=== PATIENT | male | born 1990 | race Two or more races ===

== ENCOUNTER 2022-02-03 16:01 | Outpatient (REF) | payer MEDICAID, SELFPAY ==
[2022-02-03 16:17] LABS: MANUAL DIFF FLAG NO
[2022-02-03 16:40] LABS: Basophils Absolute Auto 0.1 X10*3/uL (0.0-0.2); Basophils Percent Auto 0.7 % (0-2); Eosinophils Absolute Auto 0.5 X10*3/uL (0.0-0.4); Eosinophils Percent Auto 5.1 % (0-4); Hematocrit 39.7 % (42.0-52.0); Hemoglobin 13.2 g/dl (14.0-18.0); Imm Gran Abs Auto 0.03 X10*3/uL (0.00-0.03); Imm Gran Pct Auto 0.3 % (0.0-0.4); Lymphocytes Absolute Auto 3.1 X10*3/uL (1.2-4.9); Lymphocytes Percent Auto 34.4 % (20-40); Mean Corpuscular HGB Conc 33.2 g/dl (31.0-36.0); Mean Corpuscular Hemoglobin 29.5 pg (27.0-33.0); Mean Corpuscular Volume 88.8 fL (80.0-98.0); Mean Platelet Volume 11.1 fL (9.4-12.4); Monocytes Absolute Auto 0.5 X10*3/uL (0.1-1.2); Neutrophils Absolute Auto 4.8 x10*3/uL (2.0-8.3); Neutrophils Percent Auto 53.5 % (45-73); Platelet Count 302 X10*3/uL (160-400); Red Blood Count 4.47 X10*6/uL (4.60-5.80); Red Cell Distribution Width 12.6 % (11.0-16.0)
[2022-02-03 17:06] LABS: Anion Gap 12 (12-20); Blood Urea Nitrogen 23 mg/dL (9-16); Calcium 10.1 mg/dL (8.4-10.2); Carbon Dioxide 29 mmol/L (22-29); Chloride 106 mmol/L (96-108); Cholesterol 210 mg/dL; Estimated Glomerular Filt Rate > 60; Glucose Random 81 mg/dL (60-115); Potassium 4.3 mmol/L (3.3-5.1); Sodium 143 mmol/L (135-145)
== END 2022-02-03 16:02 | disposition home or self-care (01) ==
LOC: HO.LAB 16:01
PROVIDERS: PCP Internal Medicine; Visit Provider Internal Medicine
DX: Z00.00 Encounter for general adult medical examination without abnormal findings (principal)
CPT/HCPCS: 36415; 80048; 82465; 85025

== ENCOUNTER 2023-06-19 11:08 | Outpatient (REF) | payer SELFPAY ==
[2023-06-19 11:28] LABS: MANUAL DIFF FLAG NO
[2023-06-19 12:21] LABS: Basophils Absolute Auto 0.1 X10*3/uL (0.0-0.2); Basophils Percent Auto 1.2 % (0-2); Eosinophils Absolute Auto 0.4 X10*3/uL (0.0-0.4); Eosinophils Percent Auto 6.4 % (0-4); Hematocrit 38.9 % (42.0-52.0); Hemoglobin 12.8 g/dl (14.0-18.0); Imm Gran Abs Auto 0.02 X10*3/uL (0.00-0.03); Imm Gran Pct Auto 0.3 % (0.0-0.4); Lymphocytes Absolute Auto 2.8 X10*3/uL (1.2-4.9); Lymphocytes Percent Auto 41.6 % (20-40); Mean Corpuscular HGB Conc 32.9 g/dl (31.0-36.0); Mean Corpuscular Volume 88.2 fL (80.0-98.0); Mean Platelet Volume 11.5 fL (9.4-12.4); Monocytes Absolute Auto 0.4 X10*3/uL (0.1-1.2); Monocytes Percent Auto 6.6 % (2-11); Neutrophils Percent Auto 43.9 % (45-73); Platelet Count 259 X10*3/uL (160-400); Red Blood Count 4.41 X10*6/uL (4.60-5.80); Red Cell Distribution Width 13.2 % (11.0-16.0); White Blood Count 6.7 X10*3/uL (4.8-10.8)
[2023-06-19 12:57] LABS: Alanine Aminotransferase 11 U/L (0-40); Albumin Level 4.6 g/dL (3.5-5.0); Alkaline Phosphatase 57 U/L (39-117); Anion Gap 10 (12-20); Aspartate Amino Transferase 13 U/L (5-37); Bilirubin Total 0.7 mg/dL (0.0-1.0); Blood Urea Nitrogen 18 mg/dL (9-16); Calcium 9.4 mg/dL (8.4-10.2); Carbon Dioxide 25 mmol/L (22-29); Chloride 108 mmol/L (96-108); Cholesterol 186 mg/dL (<200); Estimated Glomerular Filt Rate > 60; Glucose Fasting 84 mg/dL (60-99); HDL Cholesterol 46 mg/dL (>40); Iron 68 mcg/dL (45-160); LDL Cholesterol Calculated 131 mg/dL (<100); Percent Iron Saturation 23 % (15-50); Potassium 4.1 mmol/L (3.3-5.1); Sodium 139 mmol/L (135-145); Total Iron Binding Capacity 298 mcg/dL (228-428); Triglycerides 45 mg/dL (<150); Unsaturated Iron Binding 230 ug/dL
[2023-06-19 13:20] LABS: Vitamin B12 364 pg/mL (200-900)
== END 2023-06-19 11:09 | disposition home or self-care (01) ==
LOC: HO.LAB 11:08
PROVIDERS: PCP Internal Medicine; Visit Provider Internal Medicine
DX: D64.9 Anemia, unspecified (principal); E78.00 Pure hypercholesterolemia, unspecified
CPT/HCPCS: 36415; 80053; 80061; 82607; 83540; 85025

== ENCOUNTER 2024-01-20 15:43 | Outpatient (REF) | payer OTHER, SELFPAY ==
[2024-01-20 15:57] LABS: MANUAL DIFF FLAG NO
[2024-01-20 17:07] LABS: Basophils Absolute Auto 0.1 X10*3/uL (0.0-0.2); Basophils Percent Auto 0.6 % (0-2); Eosinophils Absolute Auto 0.2 X10*3/uL (0.0-0.4); Eosinophils Percent Auto 1.8 % (0-4); Hematocrit 37.3 % (42.0-52.0); Imm Gran Abs Auto 0.03 X10*3/uL (0.00-0.03); Imm Gran Pct Auto 0.3 % (0.0-0.4); Lymphocytes Absolute Auto 3.3 X10*3/uL (1.2-4.9); Lymphocytes Percent Auto 35.4 % (20-40); Mean Corpuscular HGB Conc 34.9 g/dl (31.0-36.0); Mean Corpuscular Hemoglobin 30.1 pg (27.0-33.0); Mean Corpuscular Volume 86.3 fL (80.0-98.0); Mean Platelet Volume 11.1 fL (9.4-12.4); Monocytes Absolute Auto 0.5 X10*3/uL (0.1-1.2); Monocytes Percent Auto 5.2 % (2-11); Neutrophils Absolute Auto 5.3 x10*3/uL (2.0-8.3); Neutrophils Percent Auto 56.7 % (45-73); Platelet Count 253 X10*3/uL (160-400); Red Blood Count 4.32 X10*6/uL (4.60-5.80); Red Cell Distribution Width 12.6 % (11.0-16.0); White Blood Count 9.4 X10*3/uL (4.8-10.8)
[2024-01-20 17:46] LABS: Iron 72 mcg/dL (45-160); Percent Iron Saturation 24 % (15-50); Total Iron Binding Capacity 298 mcg/dL (228-428); Unsaturated Iron Binding 226 ug/dL
[2024-01-20 17:53] LABS: Ferritin 48 ng/mL (20-250)
[2024-01-20 18:06] LABS: Folate 10.1 ng/mL (> or = 4.0); Vitamin B12 363 pg/mL (200-900)
== END 2024-01-20 15:44 | disposition home or self-care (01) ==
LOC: HO.LAB 15:43
PROVIDERS: PCP Internal Medicine; Visit Provider Internal Medicine
DX: D64.9 Anemia, unspecified (principal)
CPT/HCPCS: 36415; 82607; 82728; 82746; 83540; 85025

== ENCOUNTER 2025-03-23 11:30 | Outpatient (AMB) | payer OTHER, SELFPAY ==
--- OUTSIDE RECORDS SUMMARY | 2023-10-21 08:00 | XMS_ITS ---
Author Organization [facility] Address [address] [place] [phone] Care Team Providers Care Municipal Clerk Name Role Phone Arturo (RETIRED) Tacos LOBATO Primary Care Provide Ki Devine [phone] REASON FOR VISIT ANEMIC Encounters Encounter Location Date Provider Diagnosis [facility] [address] [place] [phone] 10/21/2023 Ki Terry Plan Of Treatment No Information Progress Notes * CHEMO SOARESDOB:1990 (34 yo M)Acc No.[id number]:10/21/2023 Progress Notes Patient: CHEMO OREILLY Provider: Robert Terry MD :1990 A ge:32 Y S ex:Male Date:10/21/2023 Address:[address] [place], [place] [id number] Pcp:Tacos Morris (RETIRED )MD Subjective: * Chief Complaints: * A NEMIC * The named appointment provid er may or may not be the originator of this progress note, and it is not deemed complete until electronically signed by the appointment provider. Sign off status: Pending * Provider: Robert Terry MD Date: 0 10/21/2023 Generated for Mika deshpande/Jerry/Lakhwinderitting on: 05/24/2024 03:09 PM EST
--- NOTE | 2025-03-23 11:35 | MHC.PC.OV ---
Vital Signs 03/23/25 11:48 Height 5 ft 9 in Weight 160 lb BMI 23.6 BP 126/76 Blood Pressure Location Lt radial Position Sitting Pulse 76 Pulse Source Pulse Oximeter Temp 97.7 F Temp Source Oral Intake Visit Reasons: RONY Croke/ Re-Establish Care Synthetic Staple Extruder Required: No Allergies No Known Allergies Allergy (Verified 03/23/25 11:37) Medication List - Last Reconciled 03/23/25 by Veto Porras MD No Known Home Meds Tobacco use date assessed: 03/23/25 Dental Screening Dental Screen Date: 03/23/25 Did you have a dental visit in the last 12 months?: No Was dental information given to patient?: Patient has dentist HPI HPI Comments History of Present Illness Details History of Present Illness The patient is a 34 year old male presenting for an annual physical examination. He considers himself to be generally healthy and denies any significant medical conditions. He is not taking any medications. The patient's only surgical history is an appendectomy approximately 12 years ago. His last blood work was performed in January of the previous year and was reportedly normal. Regarding his mental health, he reports occasional stress related to betting but denies depression, anxiety, or suicidal thoughts on screening. He does endorse feeling tired with little energy and having a poor appetite or overeating on several days. The patient has declined both the COVID-19 and influenza vaccinations. His last dental visit was over five years ago. Medical History: - Reports feeling tired with low energy on several days. - Reports poor appetite or overeating on several days. - Reports stress related to betting. Surgical History: - Appendectomy approximately 12 years ago. Medications: - The patient reports taking no medications. Family History: - Denies family history of heart disease, diabetes, or cancer. Diagnostic Results: - Labs: Blood work from January of the previous year was reviewed and noted to be normal. Social History - Employment: Works as a supervisor shop for retailers. - Housing: Reports having a stable place to live. - Substance Use: Denies use of tobacco, vaping products, alcohol, heroin, or cocaine. - Substance Use: Reports smoking marijuana, about two blunts per day. - Service: Denies ever serving in the . - Dental Care: Has not seen a dentist in over five years. [facility] Medical History (Updated 03/23/25 @ 11:50 by Veto Porras MD) Annual physical exam Social History Housing: Apartment Patient Tobacco Use Status: Never used Tobacco e-Cigarette/Vaping Use: Never Used Second Hand Smoke Exposure: No service: No Current occupational status: employed Current occupational exposures/hazards: No Cognitive needs: No Hearing needs: No Vision needs: No Questionnaire PHQ-9 Over the last 2 weeks, how often have you been bothered by any of the following problems? 1. Little interest or pleasure in doing things: not at all 2. Feeling down, depressed, or hopeless: not at all 3. Trouble falling or staying asleep, or sleeping too much: not at all 4. Feeling tired or having little energy: several days 5. Poor appetite or overeating: several days 6. Feeling bad about yourself - or that you are a failure or have let yourself or your family down: not at all 7. Trouble concentrating on things, such as reading the newspaper or watching television: not at all 8. Moving or speaking so slowly that other people could have noticed. Or the opposite - being so fidgety or restless that you have been moving around a lot more than usual: not at all 9. Thoughts that you would be better off or of hurting yourself in some way: not at all Total score: 2 Depression Screening Interpretation: Negative Depression Screening Done: Yes 28670 - PHQ-9 Billing: Yes Source: Developed by Drs. Ki Aleman, Clara Tan, Christian Connell and colleagues, with an educational fernando from [employer]. Thrive Questionnaire Date Thrive assessed: 03/23/25 I am a: Patient What is your living situation today?: I have a steady place to live Within the past 12 months, did the food you bought not last and you didn't have the money to get more?: Never true Within the past 12 months, did you worry whether your food would run out before you got money to buy more?: Never true Do you have trouble paying for medicines?: No Do you have trouble getting transportation to medical appointments?: No Do you have trouble paying your heating and electricity bill?: No Do you have trouble taking care of your child, family member or friend?: No Do you have trouble with day-to-day activities such as bathing, preparing meals, shopping, managing finances, etc.?: No Are you currently unemployed and looking for a job?: No Are you interested in more education?: No THRIVE Score: 0 AUDIT C Alcohol Use Questionnaire (AUDIT-C) 1. How often do you have a drink containing alcohol?: Never 3. How often do you have six or more drinks on one occasion?: Never Total Score: 0 Score Reviewed/Action Taken: Yes ALBERT-7 AMB Questionnaire ALBERT-7 Date ALBERT - 7 assessed: 03/23/25 Feeling nervous, anxious, or on edge: 0 = Not at all Not being able to stop or control worryin = Not at all Worrying too much about different things: 0 = Not at all Trouble relaxin = Not at all Being so restless that it is hard to sit still: 0 = Not at all Becoming easily annoyed or irritable: 0 = Not at all Feeling afraid as if something awful might happen: 0 = Not at all Total ALBERT-7 score (0-4 normal; 5-9 mild; 10-14 moderate; 15-21 severe): 0 Source: Developed by Drs. Ki Aleman, Clara Tan, Christian Connell and colleagues, with an educational fernando from [employer]. ALBERT-7 Assessment Billing ALBERT-7 Assessment Tool: ALBERT-7 Assessment 41532 Review of Systems Narrative Review of Systems - Constitutional: Reports feeling tired with little energy on several days. - Psychiatric: Reports occasional stress. - Psychiatric: Denies anhedonia, depressed mood, trouble concentrating, slowed movement, suicidal ideation, nervousness, uncontrollable worry, trouble relaxing, restlessness, and irritability. - Endocrine: Reports poor appetite or overeating on several days. - Sleep: Denies difficulty sleeping or sleeping too much. All systems reviewed & are unremarkable except as reviewed in HPI and above Physical exam (Primary Care) Tobacco/Smoking Status: Tobacco use Status Patient Tobacco Use Status Never used Tobacco 03/23/25 11:37 e-Cigarette/Vaping Use Never Used 03/23/25 11:37 PHQ-9: PHQ-9 Score PHQ-9: Total score 2 03/23/25 11:39 Depression Screening Interpretation: Negative Thrive Assessment: Date of Thrive Assessment Date Thrive assessed 03/23/25 03/23/25 11:37 Narrative Physical Exam General: +Alert and oriented, Well nourished, No acute distress. Eye: Pupils are equal, round and reactive to light, Intact accommodation, Extraocular movements are intact, Normal conjunctiva, Vision unchanged. HENT: Normocephalic, Atraumatic, Tympanic membranes are clear, Normal hearing, Oral mucosa is moist, No pharyngeal erythema, Ear canals patent. Respiratory: Lungs CTA bilaterally, No wheeze, Respirations are non-labored. Cardiovascular: Regular rate, Regular rhythm, S1 auscultated, S2 auscultated, No murmur, Good pulses equal in all extremities, Normal peripheral perfusion, No edema. Gastrointestinal: Soft, Non-tender, Non-distended, Normal bowel sounds, No organomegaly. Musculoskeletal: Normal range of motion, Normal strength, No tenderness, No swelling, No deformity, Normal gait. Integumentary: Warm, Dry, [place], Intact. Neurologic: Alert, Oriented, Normal sensory, Normal motor function, No focal defects, Cranial Nerves II-XII are grossly intact, Normal deep tendon reflexes. Psychiatric: Cooperative, Appropriate mood & affect, Normal judgment, Reports stress related to gambling, No depression, No anxiety. Coding Level of Care Code New Pt Prev Care 18-39yr(60258 Diagnoses Annual physical exam Z00.00 Additional Codes ALBERT-7 Assessment Billing - ALBERT-7 Assessment Tool: ALBERT-7 Assessment 03829 ([id number]) PHQ-9 - 81567 - PHQ-9 Billing: Yes ([id number]) Assessment & Plan Assessment & Plan (1) Annual physical exam: Comment: - The patient is a 34-year-old male presenting for a routine/new patient/physical - He reports feeling generally healthy. - Plan includes ordering annual screening labs including a complete blood count, electrolytes, glucose, thyroid function, vitamin D, and screening for hepatitis, HIV, and syphilis. - Past labs from last year were noted to be unremarkable. - The patient was counseled on preventative care. - He was advised to see a dentist, as his last visit was over five years ago. - The patient declined recommended influenza and COVID-19 vaccinations. Code(s): Z00.00 - Encounter for general adult medical examination without abnormal findings Category: Medical Plan: Health Maintenance: - Screening Labs: Ordered annual labs including a complete blood count, electrolytes, glucose check, thyroid function, Vitamin D, and screening for hepatitis, HIV, and syphilis. - Vaccinations: Discussed influenza and COVID-19 shots; patient declined both. - Dental Health: Advised to see a dentist for a check-up due to a lapse of over five years since the last visit. - Substance Use Counseling: Assessed for tobacco, alcohol, and drug use. Patient was informed and verbally consented to the use of an ambient scribe for clinic note documentation during this visit. Vital signs reviewed. Comprehensive history, review of systems, and physical exam completed. Medications, allergies, and problem list reviewed and updated. Counseling provided on nutrition, regular exercise, sleep hygiene, and moderation of alcohol use. Discussed age-appropriate screenings (mammogram, colonoscopy, Pap, bone density) and immunizations (flu, COVID, shingles, Tdap). Screened for depression, fall risk, and home safety; no current concerns. Discussed stress management, dental and vision care, and importance of ongoing preventive follow-up. Routine labs ordered for metabolic and lipid screening. Patient educated on healthy lifestyle and agrees with the plan. Plan I informed the patient that his blood work from last January was normal. I explained that we would be repeating routine annual labs today, including a complete blood count, electrolytes, glucose, thyroid function, vitamin D, and screens for hepatitis, HIV, and syphilis. I told the patient I would call him if any results are abnormal. We discussed vaccinations, and though he declined, I explained that the flu shot helps prevent severe illness. I advised him to schedule a dental visit, as it has been over five years. I instructed him to go to the lab across the [place] for his blood draw. Orders: Orders Hemoglobin A1c Today Z00.00 - Encounter for general adult medical examination without abnormal findings HIV Ab/Ag Today Z00.00 - Encounter for general adult medical examination without abnormal findings Syphilis Screen Today Z00.00 - Encounter for general adult medical examination without abnormal findings Vitamin D 25-OH Total Today Z00.00 - Encounter for general adult medical examination without abnormal findings Complete Blood Count Auto Diff Today Z00.00 - Encounter for general adult medical examination without abnormal findings Comprehensive Met. Panel Today Z00.00 - Encounter for general adult medical examination without abnormal findings Hepatitis A,B,C Profile Today Z00.00 - Encounter for general adult medical examination without abnormal findings Lipid Panel Today Z00.00 - Encounter for general adult medical examination without abnormal findings Microalbumin, Random (w Creat) Today Z00.00 - Encounter for general adult medical examination without abnormal findings TSH reflex Free T4 Today Z00.00 - Encounter for general adult medical examination without abnormal findings Patient Instructions: - Please go to the lab located across the [place] today to have your blood drawn for testing. - We will contact you if there are any abnormal findings in your lab results. - You should schedule an appointment with a dentist for a check-up, as it has been over five years since your last one. - It is recommended that you receive the flu and COVID-19 shots to protect your health.
[2025-03-23 11:48] VITALS: BP 126/76; PULSE 76; TEMP 36.5; BMI 23.6
--- OUTSIDE RECORDS SUMMARY | 2025-03-23 15:10 | XMS_ITS | Encounter Summary ---
Author Organization [facility] Address [address] [place], [place] [id number] Phone Care Team Providers Care Law Secretary Name Role Phone Unavailable Primary Care Provider Unavailabl e Encounter Details Date Type Department Care Team (Late st Contact Info) Description 11/11/2010 Documentation EM Family Medicine [address] [place] [address] Family Medicine, Physician [address] [place] [address] Social History Tobacco Use Types Packs/Day Years Used Date Smoking Tobacco: Never Assessed Sex and Gender Information Value Date Recorded Sex Assigned at Not on file Legal Sex Male 4:34 PM EDT Gender Identity Not on file Sexual Orientation Not on file documented as of this encounter Plan of Treatment Not on file documented as of this encounter Visit Diagnoses Not on filedocumented in this encounter
--- OUTSIDE RECORDS SUMMARY | 2025-03-23 15:10 | XMS_ITS | Encounter Summary ---
Author Organization [facility] Address [address] [place], [place] [id number] Phone Care Team Providers Care Accounts Receivable Clerk Name Role Phone Unavailable Primary Care Provider Unavailabl e Encounter Details Date Type Department Care Team (Late st Contact Info) Description 09/17/2010 Documentation EM Family Medicine [address] [place] [address] Family Medicine, Physician [address] [place] [address] Social History Tobacco Use Types [...]
--- OUTSIDE RECORDS SUMMARY | 2025-03-23 15:10 | XMS_ITS | Encounter Summary ---
Author Organization [facility] Address [address] [place], [place] [phone] Phone Care Team Providers Care Hitch Technician Name Role Phone Unavailable Primary Care Provider Unavailabl e Encounter Details Date Type Department Care Team (Late st Contact Info) Description 11/11/2010 Documentation EM Family Medicine [address] [place] [address] Family Medicine, Physician [address] [place] [address] Social History Tobacco Use Types [...]
--- OUTSIDE RECORDS SUMMARY | 2025-03-23 15:10 | XMS_ITS | Patient Health Record ---
Author Organization [facility] Address [address] [place] [phone] Care Team Providers Care Community Development Coordinator Name Role Phone Arturo (RETIRED) Tacos LOBATO Primary Care Provide r Ki Ibarra [phone] Allergies No Known Allergies Reason For Referral No Information Immunizations Vaccine Route Administration Date Status Comme nts Influenza Unknown 01/20/2024 Refused Social History Tobacco Use: Social History Observation Description Date Details (start date - stop date) Never Smoker NA - NA Social History Drugs/Alcohol: Social Info Question Answer Notes Alcohol Screen Did you have a drink containing alcohol in the past year? No Points 0 Interpretation Negative Tobacco Use: Social Info Question Answer Notes Tobacco Use/Smoking Patient is a nonsmoker Additional Details Category Social Info Options Details Miscellaneous: Marital status: Occupation: Shipping/Receiving Clerk Section Notes: Nonsmoker; no alcohol Problems Problem Type SNOMED Code ICD Code Onset Dates Problem Status W/U Status Risk Notes Problem Anemia (481780449) Anemia (D64.9) Active confirmed Plan Of Treatment Pending Test Test Name Order Date IRON + IBC (FE) 01/20/2024 CBC w DIFF 01/20/2024 Ferritin 01/20/2024 Vitamin B12 and Folate 01/20/2024 Insurance Providers Payer Name Payer Address Payer Phone Subscriber Number Group Number Insured Name Patient Relationship to Insured Coverage Start Date Coverage End Date [facility] [address] [address] [place], [place] [id number] CHEMO SOARES Self - patient is the insured Medical (General) History Medical History History ICD Code Anemia--in June of 2023 his hemoglobin was 12.8 with a normal MCV; his iron was 68 with an iron saturation of 23%. His B12 level was normal at 364. Denies RI,DM,CVA,Lung disease,renal dise ase Surgical History Surgery Date(Month/Year) Appy
--- OUTSIDE RECORDS SUMMARY | 2025-03-23 15:10 | XMS_ITS | Encounter Summary ---
Author Organization [facility] Address [address] [place] [address] Phone Care Team Providers Care Diamond Merchant Name Role Phone Unavailable Primary Care Provider Unavailabl e Encounter Details Date Type Department Care Team (Late st Contact Info) Description 11/20/2016 Conversion Encounter [facility] - [address] [address] Social History Tobacco Use Types Packs/Day Years [...]
--- OUTSIDE RECORDS SUMMARY | 2025-03-23 15:10 | XMS_ITS | Encounter Summary ---
Author Organization [facility] Address [address] [place], [place] [phone] Phone Care Team Providers Care Auto Job Estimator Name Role Phone Unavailable Primary Care Provider Unavailabl e Encounter Details Date Type Department Care Team (Late st Contact Info) Description 11/11/2010 Documentation EM Family Medicine [address] [place] [address] Family Medicine, Physician [address] [place] [address] Social History Tobacco Use Types [...]
--- OUTSIDE RECORDS SUMMARY | 2025-03-23 15:10 | XMS_ITS | Clinical Summary ---
Author Organization [facility] Address [address] [place] [address] Phone Care Team Providers Care Electronic Commerce Specialist Name Role Phone Unavailable Primary Care Provider Unavailabl e Immunizations Immunization Administration Dates Next Due Meningococcal Conj (Menactra) MCV4P 05/05/2007 Td (adult) (MBL), 2 Lf tetanus toxoid, PF, adsor bed 09/27/2002 Tdap 05/05/2007 Varicella 09/27/2002 Family History Relation Name Status Comments Father Alive Father: Alive a nd well Maternal Grandfather Materna l grandfather: , Myocardial infarction Mother Alive Mother: Asthma Sister Sister: ? Bipol ar Disorder Social History Tobacco Use Types Packs/Day Years Used Date Smoking Tobacco: Never Assessed Sex and Gender Information Value Date Recorded Sex Assigned at Not on file Legal Sex Male 4:34 PM EDT Gender Identity Not on file Sexual Orientation Not on file Last Filed Vital Signs Vital Sign Reading Time Taken Comments Blood Pressure 118/70 06/19/2010 12:00 AM EDT Pulse 76 06/19/2010 12:00 AM EDT Temperature 36.3 C (97.3 F) 08/05/2010 12:00 AM EDT Respiratory Rate - - Oxygen Saturation - - Inhaled Oxygen Concentration - - Weight 58.5 kg (129 lb) 08/05/2010 12:00 AM EDT Height 175.3 cm (5' 9 ) 06/19/2010 12:00 AM EDT Body Mass Index 19.05 06/19/2010 12:00 AM EDT Plan of Treatment Health Maintenance Due Date Last Done Comments MMR Vaccines (1 of 1 - Standard series) 10/25/2002 Varicella Vaccines (2 of 2 - 2-dose childhood series) 12/20/2002 09/27/2002 Hepatitis B Vaccines (1 of 3 - 19+ 3-dose series) 2009 DTaP,Tdap,and Td Vaccines (3 - Td or Tdap) 05/05/2017 05/05/2007, 09/27/2002 HPV Vaccines (1 - 3-dose SCD M series) 2017 Influenza Vaccines (#1) 2024 COVID-19 Vaccine (2024-2 6 season) 2024 Meningococcal Vaccine Completed 05/05/2007 HIB Vaccines Aged Out No longer eligi ble based on patient's age to complete this topic Hepatitis A Vaccines Aged Out No long er eligible based on patient's age to complete this topic IPV Vaccines Aged Out No longer eligi ble based on patient's age to complete this topic Men B Vaccine Aged Out No longer elig ible based on patient's age to complete this topic Pneumococcal Vaccine Aged Out No long er eligible based on patient's age to complete this topic
--- OUTSIDE RECORDS SUMMARY | 2025-03-23 15:10 | XMS_ITS | Clinical Summary ---
Author Organization [facility] Address [address] [place] [address] Care Team Providers Care Environmental Remediation Engineer Name Role Phone Unavailable Primary Care Provider Unavailabl e Social History Tobacco Use Types Packs/Day Years Used Date Smoking Tobacco: Never Assessed Sex and Gender Information Value Date Recorded Sex Assigned at Not on file Legal Sex Male 8:40 AM EST Gender Identity Not on file Sexual Orientation Not on file Plan of Treatment Health Maintenance Due Date Last Done Comments DTaP,Tdap,and Td Vaccines (1 - Tdap) 2009 Hepatitis B Vaccines (1 of 3 - 19+ 3-dose series) 2009 HPV Vaccines (1 - 3-dose SCD M series) 2017 Depression Screening 04/06/2024 COVID-19 Vaccine (1 - 2024-2 6 season) 2024 Influenza Vaccine (#1) 2024 RSV Immunization Adult Patie nts (1 - 1-dose 75+ series) 2065 HIB Vaccines Aged Out No longer eligi ble based on patient's age to complete this topic Hepatitis A Vaccines Aged Out No long er eligible based on patient's age to complete this topic IPV Vaccines Aged Out No longer eligi ble based on patient's age to complete this topic MMR Vaccines Aged Out No longer eligi ble based on patient's age to complete this topic Meningococcal ACWY Vaccine Aged Out N o longer eligible based on patient's age to complete this topic Meningococcal B Vaccine Aged Out No l onger eligible based on patient's age to complete this topic Pneumococcal Vaccine: Pediat rics (0 to 5 Years) and At-Risk Patients (6 to 49 Years) Aged Out No longer eligible b ased on patient's age to complete this topic RSV Immunization Patients Un radha 20 months Aged Out No longer eligible b ased on patient's age to complete this topic Varicella Vaccines Aged Out No longer eligible based on patient's age to complete this topic
== END 2025-03-23 11:44 | disposition home or self-care (01) ==
LOC: HO.HMCHD 11:30
PROVIDERS: PCP Student in an Organized Health Care Education/Training Program; Visit Provider Student in an Organized Health Care Education/Training Program
DX: Z00.00 Encounter for general adult medical examination without abnormal findings (principal)

== ENCOUNTER → 2025-03-23 11:30 | Outpatient (BNVA) | payer OTHER, SELFPAY | PROVIDERS: PCP Internal Medicine; Visit Provider Student in an Organized Health Care Education/Training Program | DX: Z00.00 Encounter for general adult medical examination without abnormal findings (principal); Z13.31 Encounter for screening for depression; Z13.39 Encounter for screening examination for other mental health and behavioral disorders | CPT/HCPCS: 96127; 99385 ==